=== PATIENT | female | born 1995 | race Caucasian/White ===

== ENCOUNTER 2017-07-17 13:19 | Emergency (ER) | payer OTHER ==
[2017-07-17 13:20] VITALS: BMI 36.6
[2017-07-17 14:06] VITALS: TEMP 98.4
--- NOTE | 2017-07-17 15:09 | ED PDOC ---
Arrival/HPI - General Chief Complaint: Abnormal Skin Integrity Time Seen by Provider: 07/17/17 14:59 Historian: Patient - History of Present Illness Narrative History of Present Illness (Text): 07/17/17 15:05 22 y/o female, no significant pmh, nkda, c/o frontal forehead rash and lt. sided neck pain x 3 days. Pt. stated that she has painful acne lesion on the face which lateral form to have lt. sided neck ear pain, no fever or chills, no change in cosmetic product, no numbness or tingling, no rash, no night sweat, no rash, no other medical or psychological complaints. Past Medical History - Provider Review Nursing Documentation Reviewed: Yes - Infectious Disease Hx of Infectious Diseases: None - Tetanus Immunization Tetanus Immunization: Up to Date - Cardiac Hx Hypertension: Yes - Pulmonary Hx Asthma: Yes - Endocrine/Metabolic Other/Comment: HYPOGLYCEMIA - Hematological/Oncological Hx Anemia: Yes - Genitourinary/Gynecological Other/Comment: URINARY INCONTINENCE - Psychiatric Hx Psychophysiologic Disorder: No Hx Substance Use: Yes (CANNABIS) - Past Surgical History Past Surgical History: No Previous - Suicidal Assessment Feels Threatened In Home Enviroment: No Family/Social History - Physician Review Nursing Documentation Reviewed: Yes Family/Social History: Unknown Family HX Smoking Status: Current Some Days Smoker Hx Alcohol Use: Yes Frequency of alcohol use: Socially Hx Substance Use: Yes (CANNABIS) Hx Substance Use Treatment: No Allergies/Home Meds Allergies/Adverse Reactions: Allergies No Known Allergies Allergy (Verified 07/17/17 14:06) Review of Systems - Review of Systems Constitutional: absent: Fatigue, Fevers Eyes: absent: Vision Changes ENT: absent: Hearing Changes Respiratory: absent: SOB, Cough Cardiovascular: absent: Chest Pain Gastrointestinal: absent: Abdominal Pain, Nausea, Vomiting Musculoskeletal: absent: Arthralgias, Back Pain Skin: Skin Lesions. absent: Rash, Pruritis, Laceration, Ulcer, Cellulitis Neurological: absent: Headache Hemo/Lymphatic: Adenopathy Physical Exam Vital Signs Reviewed: Yes Vital Signs Temp Pulse Resp BP Pulse Ox 07/17/17 14:01 98.4 F 85 17 115/81 99 Temperature: Afebrile Blood Pressure: Normal Pulse: Regular Respiratory Rate: Normal Appearance: Positive for: Well-Appearing, Non-Toxic, Comfortable Pain Distress: Moderate Mental Status: Positive for: Alert and Oriented X 3 - Systems Exam Head: Present: Atraumatic, Normocephalic Pupils: Present: PERRL Extroacular Muscles: Present: EOMI Conjunctiva: Present: Normal Ears: Present: NORMAL TM, Normal Canal. No: Erythema Mouth: Present: Moist Mucous Membranes Neck: Present: Normal Range of Motion Respiratory/Chest: Present: Clear to Auscultation, Good Air Exchange. No: Respiratory Distress, Accessory Muscle Use Cardiovascular: Present: Regular Rate and Rhythm, Normal S1, S2. No: Murmurs Abdomen: Present: Normal Bowel Sounds. No: Tenderness, Distention, Peritoneal Signs Back: Present: Normal Inspection Upper Extremity: Present: Normal Inspection. No: Cyanosis, Edema Lower Extremity: Present: Normal Inspection. No: Edema Neurological: Present: GCS=15, Speech Normal, Motor Func Grossly Intact, Gait Normal, Memory Normal Skin: Present: Warm, Dry, Rashes (Visible visible 2 papule rashes approx. 1cm diameter noted with mild erythematous noted on the surrounding region, no periorbital swelling, no painful movement of the eye. ), Normal Color Lymphatic: Present: Other (+Lt. post auricular lymphenapathy) Psychiatric: Present: Alert, Oriented x 3, Normal Insight, Normal Concentration Medical Decision Making ED Course and Treatment: 07/17/17 15:09 -Discharge home with augmentin, doxy, motrin, avoid wearing any facial cosmetic product, avoid exposure to the sun while taking antibiotic follow up with your own pmd and city secretary within 2 days, return to the ER for any new or worsening signs or symptoms. - PA / CLINIC OFFICE MANAGER / Resident Statement MD/DO has reviewed & agrees with the documentation as recorded. Disposition/Present on Arrival - Present on Arrival Any Indicators Present on Arrival: No History of DVT/PE: No History of Uncontrolled Diabetes: No Urinary Catheter: No History of Decub. Ulcer: No History Surgical Site Infection Following: None - Disposition Have Diagnosis and Disposition been Completed?: Yes Diagnosis: Lymphadenopathy, Facial rash Disposition: HOME/ ROUTINE Disposition Time: 15:11 Patient Plan: Discharge Condition: GOOD Additional Instructions: -Discharge home with augmentin, doxy, motrin, avoid wearing any facial cosmetic product, avoid exposure to the sun while taking antibiotic follow up with your own pmd and city secretary within 2 days, return to the ER for any new or worsening signs or symptoms. Prescriptions: Amoxicillin/Clavulanate [Augmentin 875 MG-125 MG] 1 tab PO BID #20 tab Doxycycline Hyclate 100 mg PO BID #20 cap Ibuprofen [Motrin] 600 mg PO QID #24 tab Referrals: Talia Salazar, [Primary Care Provider] - Follow up with primary Tona Cadena MD [Staff Provider] - Follow up with primary [facility] [place] [Outside] - Follow up with primary Forms: [employer] (Malay), WORK NOTE
[2017-07-17 15:33] VITALS: BP 116/87; PULSE 82; RESP 16; O2SAT 100
== END 2017-07-17 15:26 | disposition home or self-care (01) ==
LOC: ED 13:19
DX: R21 Rash and other nonspecific skin eruption (principal); R59.1 Generalized enlarged lymph nodes; I10 Essential (primary) hypertension

== ENCOUNTER 2017-08-02 23:15 | Emergency (ER) | payer OTHER ==
[2017-08-02 23:16] VITALS: BMI 36.6
[2017-08-03 00:22] VITALS: RESP 18; TEMP 98; O2SAT 100
[2017-08-03] MEDS ORDERED: DiphenhydrAMINE 12.5 mg/5 ml LIQ UD (5 ml) PO STA (00:40)
--- NOTE | 2017-08-03 01:08 | ED PDOC ---
Arrival/HPI - General Chief Complaint: Abnormal Skin Integrity Time Seen by Provider: 08/03/17 00:40 Historian: Patient - History of Present Illness Narrative History of Present Illness (Text): 08/03/17 00:52 22yo female who present with complaint of rash to her left elbow x 2days. States she was seen here last week for similar rash on her forehead and was discharged home with antibiotics. states she stopped taking the antibiotics because of the way it made her feel. she denies any new lotion, medication ( except the antibiotics), food, any other inciting factors. Denies SOB, tongue swelling, chest pain ,fever, neck pain. Past Medical History - Provider Review Nursing Documentation Reviewed: Yes - Infectious Disease Hx of Infectious Diseases: None - Tetanus Immunization Tetanus Immunization: Up to Date - Cardiac Hx Hypertension: Yes - Pulmonary Hx Asthma: Yes Hx Sleep Apnea: Yes - HEENT Hx Sinusitis: Yes - Endocrine/Metabolic Other/Comment: HYPOGLYCEMIA - Hematological/Oncological Hx Anemia: Yes - Genitourinary/Gynecological Other/Comment: URINARY INCONTINENCE - Psychiatric Hx Psychophysiologic Disorder: No Hx Substance Use: Yes (CANNABIS) - Past Surgical History Past Surgical History: No Previous - Suicidal Assessment Feels Threatened In Home Enviroment: No Family/Social History - Physician Review Nursing Documentation Reviewed: Yes Family/Social History: Unknown Family HX Smoking Status: Current Some Days Smoker Hx Alcohol Use: Yes Hx Substance Use: Yes (CANNABIS) Hx Substance Use Treatment: No Allergies/Home Meds Allergies/Adverse Reactions: Allergies strawberry Allergy (Verified 08/03/17 00:29) ANAPHYLAXIS Review of Systems - Physician Review All systems were reviewed & negative as marked: Yes - Review of Systems Constitutional: Normal Eyes: Normal ENT: Normal Respiratory: Normal Cardiovascular: Normal Gastrointestinal: Normal Genitourinary Female: Normal Musculoskeletal: Normal Skin: Rash (Left elbow), Pruritis Neurological: Normal Endocrine: Normal Hemo/Lymphatic: Normal Psychiatric: Normal Physical Exam Vital Signs Reviewed: Yes Vital Signs Temp Pulse Resp BP Pulse Ox 08/03/17 00:22 98.0 F 92 H 18 130/83 100 Temperature: Afebrile Blood Pressure: Normal Pulse: Regular Respiratory Rate: Normal Appearance: Positive for: Well-Appearing, Non-Toxic, Comfortable Pain Distress: None Mental Status: Positive for: Alert and Oriented X 3 - Systems Exam Head: Present: Atraumatic, Normocephalic Pupils: Present: PERRL Extroacular Muscles: Present: EOMI Conjunctiva: Present: Normal Mouth: Present: Moist Mucous Membranes Neck: Present: Normal Range of Motion Respiratory/Chest: Present: Clear to Auscultation, Good Air Exchange. No: Respiratory Distress, Accessory Muscle Use Cardiovascular: Present: Regular Rate and Rhythm, Normal S1, S2. No: Murmurs Abdomen: Present: Normal Bowel Sounds. No: Tenderness, Distention, Peritoneal Signs Back: Present: Normal Inspection Upper Extremity: Present: Normal Inspection. No: Cyanosis, Edema Lower Extremity: Present: Normal Inspection. No: Edema Neurological: Present: GCS=15, CN II-XII Intact, Speech Normal Skin: Present: Warm, Dry, Rashes (Erythematous raised hives/patch noted on left elbow), Normal Color Psychiatric: Present: Alert, Oriented x 3, Normal Insight, Normal Concentration Medical Decision Making ED Course and Treatment: 08/03/17 01:17 PT in ED for stated history. she was not in any distress. comfortable. She was advised to f/u with a Statistician Applied. Advised to continue with her abx. Rx of Benadryl, Pepcid and prednisone given. Advised TRT ED for any worsening symptoms - Medication Orders Current Medication Orders: Discontinued Medications Diphenhydramine HCl (Benadryl) 25 mg PO STAT STA Stop: 08/03/17 00:41 Last Admin: 08/03/17 01:10 Dose: 25 mg Famotidine (Pepcid) 20 mg PO STAT STA Stop: 08/03/17 00:41 Last Admin: 08/03/17 01:10 Dose: 20 mg Prednisone (Prednisone Tab) 40 mg PO STAT STA Stop: 08/03/17 00:41 Last Admin: 08/03/17 01:10 Dose: 40 mg Disposition/Present on Arrival - Present on Arrival Any Indicators Present on Arrival: No History of DVT/PE: No History of Uncontrolled Diabetes: No Urinary Catheter: No History of Decub. Ulcer: No History Surgical Site Infection Following: None - Disposition Have Diagnosis and Disposition been Completed?: Yes Diagnosis: Rash Disposition: HOME/ ROUTINE Disposition Time: :10 Patient Plan: Discharge Condition: STABLE Discharge Instructions (ExitCare): Acute Rash (ED) Additional Instructions: Follow up with a Statistician Applied Return to ED for any new symptoms Prescriptions: DiphenhydrAMINE [Benadryl] 25 mg PO Q6 #20 cap Famotidine [Pepcid] 20 mg PO DAILY #10 tab predniSONE [Prednisone] 20 mg PO BID #6 tab Referrals: Raphael Soares MD [Staff Provider] - Follow up with primary Forms: [employer] (Kyrgyz)
[2017-08-03 01:40] VITALS: BP 131/92; PULSE 83
== END 2017-08-03 01:35 | disposition home or self-care (01) ==
LOC: ED 23:15
DX: R21 Rash and other nonspecific skin eruption (principal)